=== PATIENT | female | born 1985 | race Two or more races ===

== ENCOUNTER 2018-04-20 09:02 | Emergency (ER) | payer SELFPAY ==
[~2018-04-20] VITALS: Ht 162.6 cm; Wt 56.7 kg
[2018-04-20] MEDS ORDERED: diphenhydrAMINE HCL 25 MG CAPSULE PO ONE (09:45)
[2018-04-20] MEDS ORDERED: methylPREDNISolone SOD SUCC PF 125 MG/2 ML VIAL. IM ONE (09:45)
--- NOTE | 2018-04-20 09:54 | PHYS DOC ---
Past Medical History Past Medical History: No Pertinent History Past Surgical History: Alcohol Use: None Drug Use: None Adult General Chief Complaint Chief Complaint: SKIN RASH/ABSCESS HPI HPI 32 old female presents to ER via POV with complaints of hives which started around midnight. Patient speaks primarily Wolof so translation phone was used for communication. Patient denies taking any [id number] medications for the hives. She reports hives or on her arms, abdomen, and bilateral lower extremities. Patient reports hives or itchy denies any shortness of air, wheezing, throat pain or swelling, or chest pain. Patient denies any new lotions , medications, or foods. Denies any previous similar episodes. Review of Systems Review of Systems Constitutional: Denies fever or chills [] Eyes: Denies change in visual acuity, redness, or eye pain [] HENT: Denies nasal congestion or sore throat, throat swelling, or difficulty swallowing Respiratory: Denies cough or shortness of breath [] Cardiovascular: Denies CP/chest tightness GI: Denies abdominal pain, nausea, vomiting : Denies dysuria or hematuria [] Musculoskeletal: Denies back pain or joint pain [] Integument: Reports hives w/itching on arms, abd, and legs Neurologic: Denies headache, dizziness, focal weakness or sensory changes [] All other systems were reviewed and found to be within normal limits, except as documented in this note. Current Medications Current Medications Current Medications Medications (Trade) Dose Ordered Sig/Kaykay Start Time Stop Time Status Last Admin Dose Admin Diphenhydramine HCl (Benadryl) 12.5 mg 1X ONCE 04/20/18 11:45 04/20/18 11:46 DC 04/20/18 11:48 12.5 MG Famotidine (Pepcid Vial) 40 mg 1X ONCE 04/20/18 11:45 04/20/18 11:46 DC 04/20/18 11:48 40 MG Methylprednisolone Sodium Succinate (SOLU-Medrol 125MG VIAL) 125 mg 1X ONCE 04/20/18 09:45 04/20/18 09:46 DC 04/20/18 10:05 125 MG Sodium Chloride 1,000 ml @ 1,000 mls/hr 1X ONCE 04/20/18 11:45 04/20/18 12:39 DC 04/20/18 11:47 1,000 MLS/HR Allergies Allergies Allergies Coded Allergies Type Severity Reaction Last Updated Verified Penicillins Allergy Intermediate 04/20/18 Yes Physical Exam Physical Exam Constitutional: Well developed, well nourished, no acute distress, non-toxic appearance. [] HENT: Normocephalic, atraumatic, bilateral ears normal, oropharynx moist, no oral exudates, nose normal. No pharyngeal swelling/erythema- uvula midline without swelling/erythema Eyes: PERRLA, EOMI, conjunctiva normal, no discharge. [] Neck: Normal range of motion, no tenderness, supple, no gross adenopathy Cardiovascular:Heart rate regular rhythm Lungs & Thorax: Bilateral breath sounds clear to auscultation. Resp. equal/ nonlabored Abdomen: Bowel sounds normal, soft, no tenderness, no masses, no pulsatile masses. [] Skin: Warm, dry, diffuse hives on abd, upper/lower extremities, back, and neck- pt actively itching during exam- no open wounds Back: No tenderness, no CVA tenderness. [] Extremities: No tenderness, no cyanosis, no clubbing, ROM intact, no edema. [] Neurologic: Alert and oriented X 3, normal motor function, normal sensory function, no focal deficits noted. [] Psychologic: Affect normal, judgement normal, mood normal. [] Current Patient Data Vital Signs Vital Signs Date Time Temp Pulse Resp B/P (MAP) Pulse Ox O2 Delivery O2 Flow Rate FiO2 04/20/18 11:51 60 18 137/65 (89) 100 04/20/18 09:20 97.9 Room Air 97.9 EKG EKG [] Radiology/Procedures Radiology/Procedures [] Course & Med Decision Making Course & Med Decision Making 1130: On reevaluation following treatments patient has worsening appearance of hives reporting itching had just increased prior to this provider entering room. She denies any shortness of air or throat pain/swelling. Will have IV started and provide additional dose of Benadryl and Pepcid. 1219: On reevaluation patient reports significant improvement in symptoms and hives are much less red. Patient reports she is comfortable with home discharge at this time. Resp. equal/nonlabored. Pt is speaking in full sentences and has no issues swallowing. Will provide prescription for prednisone with education to start medication tomorrow as initial dose was given in the ER. Patient denies any shortness of air, chest pain or tightness, or throat pain/swelling. Patient is in no visible distress with equal nonlabored respirations. With use of translation phone during all interactions discharge instructions were discussed and education provided on signs and symptoms to return to ER for. Patient was educated on use of [id number] antihistamines. Dragon Disclaimer Dragon Disclaimer This electronic medical record was generated, in whole or in part, using a voice recognition dictation system. Departure Departure Impression: Primary Impression: Dariela Disposition: HOME, SELF-CARE Condition: STABLE Referrals: NO PCP (PCP) Patient Instructions: Hives Additional Instructions: Over the counter antihistamines (Benedryl/pepcid) as needed for itching as directed container. Drink plenty of water. With any shortness of air, throat pain/swelling, chest tightness, or with any concerns return to Emergency Department. If symptoms persist follow-up with primary doctor for re-evaluation Scripts Prednisone (PREDNISONE) 20 Mg Tablet 40 MG PO DAILY, #10 TAB 0 Refills start Rx on 04/21/18 as initial dose given in ER Prov: ROBSON CREWS APRN 04/20/18 ROBSON CREWS APRN Apr 20, 2018 09:54
[2018-04-20] MEDS ORDERED: diphenhydrAMINE 50 MG/ML VIAL IVP ONE (11:45)
[2018-04-20] MEDS ORDERED: IV NORMAL SALINE 1000ML BAG 1,000 ML IV ONE (11:45)
[2018-04-20] MEDS ORDERED: FAMOTIDINE 20 MG/2 ML VIAL IVP ONE (11:45)
[2018-04-20 11:51] VITALS: BP 137/65
[2018-04-20] MEDS ORDERED: PRED20TA PO (12:26)
== END 2018-04-20 12:39 | disposition home or self-care (01) ==
LOC: ER 09:02
DX: L50.9 Urticaria, unspecified (principal); Z98.890 Other specified postprocedural states; Z88.0 Allergy status to penicillin
CPT/HCPCS: 96372; 96374; 96375; 99284; J1200; J2930; J7030; Q0163; S0028; 99285-25